=== PATIENT | male | born 1950 | race Caucasian/White ===

== ENCOUNTER 2022-03-03 22:37 | Inpatient (IN) ==
[2022-03-03] MEDS ORDERED: methylPREDNISolone 125 MG/2 ML VIAL IVP ONE (23:26)
[2022-03-03] MEDS ORDERED: Ipratropium/Albuterol Neb 3 ML IH ONE (23:26)
[2022-03-03 23:49] LABS: Basophils % 0.1 %; Eosinophils % 0.1 %; Hematocrit 37.4 % (37.5-50.1); Hemoglobin 13.1 g/dL (12.9-16.9); Immature Granulocytes % 0.8 % (0-4); Lymphocytes # 0.4 K/mcL (0.6-4.6); Lymphocytes % 5.1 %; Mean Corpuscular Hemoglobin 31.3 pg (28.0-33.3); Mean Corpuscular Volume 89.5 fL (83.0-100.0); Mean Platelet Volume 11.8 fL (9.4-12.4); Monocytes # 0.8 K/mcL (0.0-1.3); Monocytes % 9.9 %; Neutrophils # 6.4 K/mcL (1.6-8.9); Platelet Count 178 K/mcL (140-400); Red Blood Count 4.18 M/mcL (4.19-5.50); Red Cell Distribution Width 13.1 % (11.5-14.5); White Blood Count 7.6 K/mcL (4.3-11.1)
[2022-03-03] MEDS ORDERED: Ipratropium/Albuterol Neb 3 ML ONE (23:49)
[2022-03-04 00:03] LABS: INR 1.1; Prothrombin Time 11.8 Seconds (9.4-12.1)
[2022-03-04 00:06] LABS: Activated Partial Thrombo Time 33.4 Seconds (26.0-36.0)
[2022-03-04 00:15] LABS: Troponin I < 0.03 ng/mL (< 0.04)
[2022-03-04 00:16] LABS: Alanine Aminotransferase 44 Units/L (7-52); Albumin 3.2 g/dL (3.5-5.7); Albumin/Globulin Ratio 0.8 (1.1-2.2); Alkaline Phosphatase 55 Units/L (34-104); Aspartate Amino Transferase 69 Units/L (13-39); BUN/Creatinine Ratio 14 (6-26); Bilirubin,Direct 0.4 mg/dL (0.0-0.2); Bilirubin,Indirect 0.7 mg/dL (0.0-1.0); Bilirubin,Total 1.1 mg/dL (0.3-1.0); Blood Urea Nitrogen 33 mg/dL (8-23); Calcium 8.3 mg/dL (8.6-10.3); Carbon Dioxide 19 mEq/L (23-29); Chloride 96 mEq/L (98-107); Glucose 201 mg/dL (70-105); Osmolality,Calculated 283 (280-300); Potassium 3.6 mEq/L (3.5-5.1); Sodium 130 mEq/L (136-145); Total Protein 7.2 g/dL (6.4-8.9); eGFR For African Americans 32 (> 60); eGFR For Non-African Americans 26 (> 60)
[2022-03-04] MEDS ORDERED: Ipratropium/Albuterol Neb 3 ML ONE (03:03)
[2022-03-04] MEDS ORDERED: Naloxone 0.4 MG/ML INJ IVP PRN (03:03)
[2022-03-04] MEDS ORDERED: Benzonatate 100 MG CAPSULE PO PRN (03:03)
[2022-03-04] MEDS ORDERED: 0.9 % Sodium Chloride 1,000 ML IVC SCH (03:03)
[2022-03-04] MEDS ORDERED: Ipratropium/Albuterol Neb 3 ML IH SCH (04:00)
[2022-03-04] MEDS ORDERED: Dextrose Gel 15 GM/37.5 ML TUBE PO PRN ×2 (04:15)
[2022-03-04] MEDS ORDERED: *HR* Dextrose 50 % in Water (Syg) 50 ML SYRINGE IVP PRN (04:15)
[2022-03-04] MEDS ORDERED: D5% in Water 1,000 ML IVC PRN (04:15)
[2022-03-04] MEDS ORDERED: Insulin LISPRO 300 UNITS/3 ML VIAL SUBQ SCH ×2 (07:30→08:17)
[2022-03-04 07:42] LABS: Basophils % 0.2 %; Hematocrit 37.6 % (37.5-50.1); Hemoglobin 12.6 g/dL (12.9-16.9); Immature Granulocytes % 1.1 % (0-4); Lymphocytes # 0.3 K/mcL (0.6-4.6); Lymphocytes % 6.7 %; Mean Corpuscular HGB Conc 33.5 g/dL (31.6-35.5); Mean Corpuscular Hemoglobin 30.9 pg (28.0-33.3); Mean Corpuscular Volume 92.2 fL (83.0-100.0); Monocytes # 0.1 K/mcL (0.0-1.3); Monocytes % 2.6 %; Neutrophils # 4.1 K/mcL (1.6-8.9); Platelet Count 178 K/mcL (140-400); Red Blood Count 4.08 M/mcL (4.19-5.50); Red Cell Distribution Width 13.3 % (11.5-14.5); Segmented Neutrophils % 89.4 %; White Blood Count 4.6 K/mcL (4.3-11.1)
[2022-03-04 07:58] LABS: Calcium 8.3 mg/dL (8.6-10.3); Potassium 4.2 mEq/L (3.5-5.1)
[2022-03-04] MEDS: ALPRAZolam 0.5 MG TABLET PO PRN (08:26)
[2022-03-04] MEDS: BuPROPion XL (24 HR) 150 MG TABLET PO SCH (08:26)
[2022-03-04] MEDS: Aspirin Enteric Coated 81 MG Tablet PO SCH (08:27)
[2022-03-04] MEDS: Ranolazine 500 MG TAB.ER.12H PO SCH ×2 (08:27→23:01)
[2022-03-04] MEDS ORDERED: Dexamethasone Sodium Phos/PF 10 MG/ML VIAL IVP SCH (12:00)
[2022-03-04] MEDS: levoFLOXacin 750 MG/150 ML 750 MG/150 ML BAG IVPB SCH (12:41)
[2022-03-04] MEDS: Insulin DETEMIR 100 UNIT/ML X5UNITS SUBQ SCH ×2 (12:42→22:59)
[2022-03-04] MEDS: Dexamethasone Sodium Phos/PF 10 MG/ML VIAL IVP SCH (12:43)
[2022-03-04] MEDS: Insulin LISPRO 300 UNITS/3 ML VIAL SUBQ SCH ×3 (12:47→22:59)
[2022-03-04] MEDS: 0.9 % Sodium Chloride 1,000 ML IVC SCH (17:47)
[2022-03-05] MEDS: 0.9 % Sodium Chloride 1,000 ML IVC SCH ×2 (00:09→10:15)
[2022-03-05 05:12] LABS: Hematocrit 32.4 % (37.5-50.1); Hemoglobin 10.8 g/dL (12.9-16.9); Mean Corpuscular HGB Conc 33.3 g/dL (31.6-35.5); Mean Corpuscular Hemoglobin 30.6 pg (28.0-33.3); Mean Corpuscular Volume 91.8 fL (83.0-100.0); Mean Platelet Volume 11.4 fL (9.4-12.4); Platelet Count 179 K/mcL (140-400); Red Blood Count 3.53 M/mcL (4.19-5.50); Red Cell Distribution Width 13.4 % (11.5-14.5); White Blood Count 10.2 K/mcL (4.3-11.1)
[2022-03-05 05:58] LABS: Alanine Aminotransferase 33 Units/L (7-52); Albumin 2.7 g/dL (3.5-5.7); Albumin/Globulin Ratio 0.8 (1.1-2.2); Alkaline Phosphatase 44 Units/L (34-104); Aspartate Amino Transferase 30 Units/L (13-39); BUN/Creatinine Ratio 20 (6-26); Bilirubin,Total 0.5 mg/dL (0.3-1.0); Blood Urea Nitrogen 41 mg/dL (8-23); Calcium 7.8 mg/dL (8.6-10.3); Carbon Dioxide 21 mEq/L (23-29); Chloride 103 mEq/L (98-107); Globulin 3.3 g/dL (2.4-3.5); Glucose 159 mg/dL (70-105); Osmolality,Calculated 287 (280-300); Potassium 3.6 mEq/L (3.5-5.1); Sodium 132 mEq/L (136-145); eGFR For African Americans 38 (> 60); eGFR For Non-African Americans 31 (> 60)
[2022-03-05 06:54] LABS: Magnesium 2.1 mg/dL (1.6-2.6)
[2022-03-05] MEDS: *HR* Enoxaparin 30 MG/0.3 ML SYRINGE SQ SCH (07:03)
[2022-03-05] MEDS: Ranolazine 500 MG TAB.ER.12H PO SCH ×2 (08:36→21:22)
[2022-03-05] MEDS: BuPROPion XL (24 HR) 150 MG TABLET PO SCH (08:36)
[2022-03-05] MEDS: Insulin DETEMIR 100 UNIT/ML X5UNITS SUBQ SCH ×2 (08:37→21:22)
[2022-03-05] MEDS: Dexamethasone Sodium Phos/PF 10 MG/ML VIAL IVP SCH (08:37)
[2022-03-05] MEDS: Aspirin Enteric Coated 81 MG Tablet PO SCH (08:37)
[2022-03-05] MEDS: Insulin LISPRO 300 UNITS/3 ML VIAL SUBQ SCH ×4 (08:38→21:21)
[2022-03-05 14:22] LABS: Ferritin > 1500 ng/mL (20-250)
[2022-03-05] MEDS: ALPRAZolam 0.5 MG TABLET PO PRN (21:22)
[2022-03-06] MEDS: 0.9 % Sodium Chloride 1,000 ML IVC SCH ×2 (03:51→11:16)
[2022-03-06] MEDS: *HR* Enoxaparin 30 MG/0.3 ML SYRINGE SQ SCH (06:53)
[2022-03-06 07:16] LABS: Hematocrit 30.2 % (37.5-50.1); Hemoglobin 9.7 g/dL (12.9-16.9); Mean Corpuscular HGB Conc 32.1 g/dL (31.6-35.5); Mean Corpuscular Hemoglobin 30.3 pg (28.0-33.3); Mean Corpuscular Volume 94.4 fL (83.0-100.0); Mean Platelet Volume 11.5 fL (9.4-12.4); Platelet Count 190 K/mcL (140-400); Red Cell Distribution Width 13.8 % (11.5-14.5); White Blood Count 8.5 K/mcL (4.3-11.1)
[2022-03-06 07:34] LABS: Calcium 7.2 mg/dL (8.6-10.3); Potassium 3.8 mEq/L (3.5-5.1)
[2022-03-06] MEDS: Insulin LISPRO 300 UNITS/3 ML VIAL SUBQ SCH ×4 (07:41→20:32)
[2022-03-06] MEDS: Aspirin Enteric Coated 81 MG Tablet PO SCH (09:23)
[2022-03-06] MEDS: Ranolazine 500 MG TAB.ER.12H PO SCH ×2 (09:23→20:31)
[2022-03-06] MEDS: BuPROPion XL (24 HR) 150 MG TABLET PO SCH (09:24)
[2022-03-06] MEDS: *HR* Ticagrelor 90 MG TABLET PO SCH ×2 (09:24→20:31)
[2022-03-06] MEDS: Dexamethasone Sodium Phos/PF 10 MG/ML VIAL IVP SCH (09:24)
[2022-03-06] MEDS: Insulin DETEMIR 100 UNIT/ML X5UNITS SUBQ SCH ×2 (09:25→20:31)
[2022-03-06] MEDS ORDERED: Budesonide/Formoterol 160/4.5 1 PUFF INH IH SCH (10:00)
[2022-03-06] MEDS: levoFLOXacin 750 MG/150 ML 750 MG/150 ML BAG IVPB SCH (12:11)
[2022-03-06] MEDS: ALPRAZolam 0.5 MG TABLET PO PRN (20:31)
[2022-03-07] MEDS: *HR* Enoxaparin 30 MG/0.3 ML SYRINGE SQ SCH (06:16)
[2022-03-07 06:55] VITALS: RESP 17
[2022-03-07] MEDS: Insulin LISPRO 300 UNITS/3 ML VIAL SUBQ SCH ×2 (07:46→12:04)
[2022-03-07 08:52] LABS: Calcium 7.6 mg/dL (8.6-10.3); Potassium 3.6 mEq/L (3.5-5.1)
[2022-03-07] MEDS: Aspirin Enteric Coated 81 MG Tablet PO SCH (10:02)
[2022-03-07] MEDS: *HR* Ticagrelor 90 MG TABLET PO SCH (10:03)
[2022-03-07] MEDS: BuPROPion XL (24 HR) 150 MG TABLET PO SCH (10:04)
[2022-03-07] MEDS: Dexamethasone Sodium Phos/PF 10 MG/ML VIAL IVP SCH (10:05)
[2022-03-07] MEDS: Insulin DETEMIR 100 UNIT/ML X5UNITS SUBQ SCH (10:09)
[2022-03-07] MEDS: Ranolazine 500 MG TAB.ER.12H PO SCH (10:10)
[2022-03-07 11:52] VITALS: BP 100/64; PULSE 69; TEMP 97.4; O2SAT 97
[2022-03-08] MEDS ORDERED: levoFLOXacin 750 MG TABLET PO SCH (12:00)
== END 2022-03-07 13:21 | disposition other institution (70) | DRG 177 ==
LOC: EMEROOPIK 22:37 → INPPIK 22:37 → SUATTDRO 03-04 01:49 → INPPIK 03-04 01:59
PROVIDERS: ADMIT Family Medicine; ATTEND Family Medicine

== ENCOUNTER 2022-03-07 08:29 | Inpatient (IN) ==
[2022-03-07] MEDS ORDERED: D5% in Water 1,000 ML IVC PRN (10:45)
[2022-03-07] MEDS ORDERED: Dextrose Gel 15 GM/37.5 ML TUBE PO PRN ×2 (10:45)
[2022-03-07] MEDS ORDERED: *HR* Dextrose 50 % in Water (Syg) 50 ML SYRINGE IVP PRN (10:45)
[2022-03-07] MEDS: *HR* Heparin 5,000 UNIT/ML VIAL SQ SCH ×2 (14:00→21:26)
[2022-03-07] MEDS: Insulin LISPRO 300 UNITS/3 ML VIAL SUBQ SCH ×3 (14:14→23:24)
[2022-03-07] MEDS: methylPREDNISolone 125 MG/2 ML VIAL IVP SCH (17:14)
[2022-03-07] MEDS: *HR* Ticagrelor 90 MG TABLET PO SCH (21:26)
[2022-03-07] MEDS: Ranolazine 500 MG TAB.ER.12H PO SCH (21:26)
[2022-03-07] MEDS: Budesonide/Formoterol 160/4.5 1 PUFF INH IH SCH (22:52)
[2022-03-07] MEDS: ALPRAZolam 0.5 MG TABLET PO PRN (22:54)
[2022-03-08] MEDS: methylPREDNISolone 125 MG/2 ML VIAL IVP SCH ×2 (00:38→08:13)
[2022-03-08] MEDS: *HR* Heparin 5,000 UNIT/ML VIAL SQ SCH ×3 (06:03→20:42)
[2022-03-08 07:07] LABS: Basophils % 0.2 %; Hematocrit 25.8 % (37.5-50.1); Hemoglobin 8.5 g/dL (12.9-16.9); Immature Granulocytes % 1.7 % (0-4); Lymphocytes # 0.4 K/mcL (0.6-4.6); Mean Corpuscular HGB Conc 32.9 g/dL (31.6-35.5); Mean Corpuscular Hemoglobin 30.9 pg (28.0-33.3); Mean Corpuscular Volume 93.8 fL (83.0-100.0); Mean Platelet Volume 11.3 fL (9.4-12.4); Monocytes # 0.2 K/mcL (0.0-1.3); Monocytes % 2.8 %; Neutrophils # 5.4 K/mcL (1.6-8.9); Platelet Count 221 K/mcL (140-400); Red Blood Count 2.75 M/mcL (4.19-5.50); Red Cell Distribution Width 13.9 % (11.5-14.5); Segmented Neutrophils % 89.3 %
[2022-03-08 07:25] LABS: Calcium 7.5 mg/dL (8.6-10.3); Potassium 4.4 mEq/L (3.5-5.1)
[2022-03-08] MEDS: Ranolazine 500 MG TAB.ER.12H PO SCH ×2 (08:13→20:42)
[2022-03-08] MEDS: *HR* Ticagrelor 90 MG TABLET PO SCH ×2 (08:14→20:42)
[2022-03-08] MEDS: Loratadine 10 MG TABLET PO SCH (08:14)
[2022-03-08] MEDS: Aspirin Enteric Coated 81 MG Tablet PO SCH (08:14)
[2022-03-08] MEDS: Multivit/Ca/Min/Fe/FA 1 TAB TABLET PO SCH (08:14)
[2022-03-08] MEDS: BuPROPion XL (24 HR) 150 MG TABLET PO SCH (08:14)
[2022-03-08] MEDS: Insulin LISPRO 300 UNITS/3 ML VIAL SUBQ SCH ×4 (08:16→20:45)
[2022-03-08] MEDS ORDERED: levoFLOXacin 500 MG TABLET PO SCH (09:00)
[2022-03-08] MEDS: Budesonide/Formoterol 160/4.5 1 PUFF INH IH SCH ×2 (10:19→21:02)
[2022-03-08] MEDS: ALPRAZolam 0.5 MG TABLET PO PRN (22:13)
[2022-03-09] MEDS: *HR* Heparin 5,000 UNIT/ML VIAL SQ SCH ×3 (06:21→22:06)
[2022-03-09] MEDS: Insulin LISPRO 300 UNITS/3 ML VIAL SUBQ SCH ×4 (08:33→22:06)
[2022-03-09] MEDS: Multivit/Ca/Min/Fe/FA 1 TAB TABLET PO SCH (08:34)
[2022-03-09] MEDS: Ranolazine 500 MG TAB.ER.12H PO SCH ×2 (08:34→22:06)
[2022-03-09] MEDS: BuPROPion XL (24 HR) 150 MG TABLET PO SCH (08:34)
[2022-03-09] MEDS: Aspirin Enteric Coated 81 MG Tablet PO SCH (08:34)
[2022-03-09] MEDS: dexAMETHasone 4 MG TABLET PO SCH (08:34)
[2022-03-09] MEDS: Loratadine 10 MG TABLET PO SCH (08:35)
[2022-03-09] MEDS: *HR* Ticagrelor 90 MG TABLET PO SCH ×2 (08:36→22:06)
[2022-03-09] MEDS: levoFLOXacin 250 MG TABLET PO SCH (08:37)
[2022-03-09] MEDS: Budesonide/Formoterol 160/4.5 1 PUFF INH IH SCH ×2 (09:42→22:25)
[2022-03-09] MEDS: ALPRAZolam 0.5 MG TABLET PO PRN (22:06)
[2022-03-10] MEDS: *HR* Heparin 5,000 UNIT/ML VIAL SQ SCH ×3 (06:57→17:02)
[2022-03-10] MEDS: Insulin LISPRO 300 UNITS/3 ML VIAL SUBQ SCH ×4 (07:32→22:29)
[2022-03-10 07:40] LABS: Hematocrit 26.3 % (37.5-50.1); Hemoglobin 8.5 g/dL (12.9-16.9); Mean Corpuscular HGB Conc 32.3 g/dL (31.6-35.5); Mean Corpuscular Hemoglobin 30.9 pg (28.0-33.3); Mean Corpuscular Volume 95.6 fL (83.0-100.0); Mean Platelet Volume 11.5 fL (9.4-12.4); Nucleated Red Blood Cells 0.9 /100 WBC (0); Platelet Count 231 K/mcL (140-400); Red Blood Count 2.75 M/mcL (4.19-5.50); Red Cell Distribution Width 13.9 % (11.5-14.5); White Blood Count 8.9 K/mcL (4.3-11.1)
[2022-03-10] MEDS: levoFLOXacin 250 MG TABLET PO SCH (08:02)
[2022-03-10] MEDS: Loratadine 10 MG TABLET PO SCH (08:02)
[2022-03-10] MEDS: BuPROPion XL (24 HR) 150 MG TABLET PO SCH (08:02)
[2022-03-10] MEDS: *HR* Ticagrelor 90 MG TABLET PO SCH ×2 (08:03→20:20)
[2022-03-10] MEDS: dexAMETHasone 4 MG TABLET PO SCH (08:03)
[2022-03-10] MEDS: Multivit/Ca/Min/Fe/FA 1 TAB TABLET PO SCH (08:03)
[2022-03-10] MEDS: Aspirin Enteric Coated 81 MG Tablet PO SCH (08:04)
[2022-03-10] MEDS: Ranolazine 500 MG TAB.ER.12H PO SCH ×2 (08:04→20:20)
[2022-03-10 08:08] LABS: Calcium 7.8 mg/dL (8.6-10.3); Potassium 4.1 mEq/L (3.5-5.1)
[2022-03-10] MEDS: Budesonide/Formoterol 160/4.5 1 PUFF INH IH SCH ×2 (08:37→22:30)
[2022-03-10 09:32] LABS: Lymphocytes # 0.9 K/mcL (0.6-4.6); Monocytes # 1.1 K/mcL (0.0-1.3); Neutrophils # 6.6 K/mcL (1.6-8.9); Platelet Clumps Few (Not Present); Platelet Estimate Normal (Normal)
[2022-03-10] MEDS ORDERED: Benzonatate 100 MG CAPSULE PO PRN (10:33)
[2022-03-10] MEDS: ALPRAZolam 0.5 MG TABLET PO PRN (20:20)
[2022-03-11] MEDS: *HR* Heparin 5,000 UNIT/ML VIAL SQ SCH ×2 (06:17→15:39)
[2022-03-11] MEDS: Aspirin Enteric Coated 81 MG Tablet PO SCH (08:48)
[2022-03-11] MEDS: levoFLOXacin 250 MG TABLET PO SCH (08:48)
[2022-03-11] MEDS: Ranolazine 500 MG TAB.ER.12H PO SCH ×2 (08:48→20:34)
[2022-03-11] MEDS: Multivit/Ca/Min/Fe/FA 1 TAB TABLET PO SCH (08:49)
[2022-03-11] MEDS: dexAMETHasone 4 MG TABLET PO SCH (08:49)
[2022-03-11] MEDS: BuPROPion XL (24 HR) 150 MG TABLET PO SCH (08:49)
[2022-03-11] MEDS: Budesonide/Formoterol 160/4.5 1 PUFF INH IH SCH ×2 (08:51→20:27)
[2022-03-11] MEDS: *HR* Ticagrelor 90 MG TABLET PO SCH ×2 (08:52→20:33)
[2022-03-11] MEDS: Loratadine 10 MG TABLET PO SCH (08:52)
[2022-03-11] MEDS: Insulin LISPRO 300 UNITS/3 ML VIAL SUBQ SCH ×4 (09:31→20:33)
[2022-03-11] MEDS: Acetaminophen 325 MG TABLET PO PRN (15:38)
[2022-03-11] MEDS: ALPRAZolam 0.5 MG TABLET PO PRN (20:33)
[2022-03-12] MEDS: *HR* Heparin 5,000 UNIT/ML VIAL SQ SCH ×2 (06:05→16:46)
[2022-03-12] MEDS: Budesonide/Formoterol 160/4.5 1 PUFF INH IH SCH ×2 (09:13→21:51)
[2022-03-12] MEDS: Aspirin Enteric Coated 81 MG Tablet PO SCH (11:29)
[2022-03-12] MEDS: BuPROPion XL (24 HR) 150 MG TABLET PO SCH (11:29)
[2022-03-12] MEDS: *HR* Ticagrelor 90 MG TABLET PO SCH ×2 (11:29→22:14)
[2022-03-12] MEDS: dexAMETHasone 4 MG TABLET PO SCH (11:29)
[2022-03-12] MEDS: Loratadine 10 MG TABLET PO SCH (11:29)
[2022-03-12] MEDS: Multivit/Ca/Min/Fe/FA 1 TAB TABLET PO SCH (11:30)
[2022-03-12] MEDS: Ranolazine 500 MG TAB.ER.12H PO SCH ×2 (11:30→22:15)
[2022-03-12] MEDS: Insulin LISPRO 300 UNITS/3 ML VIAL SUBQ SCH ×4 (11:30→22:16)
[2022-03-12] MEDS: ALPRAZolam 0.5 MG TABLET PO PRN (22:14)
[2022-03-13] MEDS: *HR* Heparin 5,000 UNIT/ML VIAL SQ SCH ×2 (05:32→20:36)
[2022-03-13] MEDS: Budesonide/Formoterol 160/4.5 1 PUFF INH IH SCH ×2 (08:57→21:23)
[2022-03-13] MEDS: dexAMETHasone 4 MG TABLET PO SCH (12:15)
[2022-03-13] MEDS: Loratadine 10 MG TABLET PO SCH (12:15)
[2022-03-13] MEDS: BuPROPion XL (24 HR) 150 MG TABLET PO SCH (12:15)
[2022-03-13] MEDS: Aspirin Enteric Coated 81 MG Tablet PO SCH (12:15)
[2022-03-13] MEDS: *HR* Ticagrelor 90 MG TABLET PO SCH ×2 (12:16→20:36)
[2022-03-13] MEDS: Ranolazine 500 MG TAB.ER.12H PO SCH ×2 (12:16→20:35)
[2022-03-13] MEDS: Multivit/Ca/Min/Fe/FA 1 TAB TABLET PO SCH (12:16)
[2022-03-13] MEDS: Insulin LISPRO 300 UNITS/3 ML VIAL SUBQ SCH ×4 (12:24→21:32)
[2022-03-13] MEDS: Acetaminophen 325 MG TABLET PO PRN (17:53)
[2022-03-13] MEDS: ALPRAZolam 0.5 MG TABLET PO PRN (20:43)
[2022-03-14] MEDS: *HR* Heparin 5,000 UNIT/ML VIAL SQ SCH (07:38)
[2022-03-14 08:28] VITALS: BP 142/75; PULSE 64; RESP 18; TEMP 97.9
[2022-03-14] MEDS: Budesonide/Formoterol 160/4.5 1 PUFF INH IH SCH (09:16)
[2022-03-14 09:18] VITALS: O2SAT 97
[2022-03-14] MEDS: dexAMETHasone 4 MG TABLET PO SCH (09:31)
[2022-03-14] MEDS: BuPROPion XL (24 HR) 150 MG TABLET PO SCH (09:31)
[2022-03-14] MEDS: Ranolazine 500 MG TAB.ER.12H PO SCH (09:31)
[2022-03-14] MEDS: Aspirin Enteric Coated 81 MG Tablet PO SCH (09:31)
[2022-03-14] MEDS: Multivit/Ca/Min/Fe/FA 1 TAB TABLET PO SCH (09:32)
[2022-03-14] MEDS: *HR* Ticagrelor 90 MG TABLET PO SCH (09:32)
[2022-03-14] MEDS: Loratadine 10 MG TABLET PO SCH (09:32)
[2022-03-14] MEDS: Insulin LISPRO 300 UNITS/3 ML VIAL SUBQ SCH (09:32)
== END 2022-03-14 12:42 | DRG 177 ==
LOC: SUATTDRO 13:31 → INPPIK 13:31
PROVIDERS: ADMIT Nurse Practitioner Family; ATTEND Family Medicine